=== PATIENT | female | born 1995 ===

== ENCOUNTER 2020-10-13 08:47 | Inpatient (IN) | payer OTHER ==
[2020-10-13] MEDS ORDERED: Nalbuphine 10 MG/1 ML Vial IVPUSH PRN ×2 (12:20→12:34)
[2020-10-13] MEDS ORDERED: Carboprost Tromethamine 250 MCG/1 ML Amp IM PRN ×2 (12:20→12:34)
[2020-10-13] MEDS ORDERED: Sodium Chloride 0.9% 10 ML Syringe FLUSH PRN ×2 (12:20→12:34)
[2020-10-13] MEDS ORDERED: Water For Irrigation,Sterile 1,000 ML Container IRR PRN ×2 (12:20→12:34)
[2020-10-13] MEDS ORDERED: Tranexamic Acid 1,000 MG in Sodium Chloride 0.9% 100 ML IV PRN ×2 (12:20→12:34)
[2020-10-13] MEDS ORDERED: Methylergonovine 0.2 MG/1 ML Amp IM PRN ×2 (12:20→12:34)
[2020-10-13] MEDS ORDERED: Misoprostol 200 MCG Tab PO PRN ×2 (12:20→12:34)
[2020-10-13] MEDS ORDERED: Sodium Chloride 0.9% 10 ML SDV IV PRN ×2 (12:20→12:34)
[2020-10-13] MEDS ORDERED: Sodium Chloride 0.9% 2.5 ML Syringe FLUSH PRN ×2 (12:20→12:34)
[2020-10-13] MEDS ORDERED: Lidocaine 1% 50 ML MDV INJECT PRN ×2 (12:20→12:34)
--- NOTE | 2020-10-13 12:20 | PCM.LDHP ---
L&D History of Present Illness - General Date of Service: 10/13/20 Admit Problem/Dx: Patient Status Order with Admit Dx/Problem 10/13/20 09:00 Patient Status [ADT] Routine Admission Diagnosis/Problem Admission Diagnosis/Problem Source of Information: Patient History Limitations: Reports: No Limitations - History of Present Illness Introduction:: 25 year old G1 at 39w1d (MARI 10/19/2020 by 1st trimester US) presented to labor and delivery with contractions every 5-6 minutes which started around 0430 this morning. During evaluation on labor and delivery, elevated diastolic blood pressure levels were noted. Denies leaking fluid or vaginal bleeding. Reports good movement. Denies history of elevated blood pressure in or other complications. Denies headache, visual changes or RUQ pain. - Related Data Allergies/Adverse Reactions: Allergies Allergy/AdvReac Type Severity Reaction Status Date / Time No Known Allergies Allergy Verified 10/13/20 09:46 Home Medications: Home Meds Vit #76/Iron,Carb/Fa [Pnv 29-1 Tablet] 1 each PO DAILY 10/13/20 [History] Sertraline [Zoloft] 50 mg PO DAILY 10/13/20 [History] H&P Review of Systems - Review of Systems: Review Of Systems: See Below General: Reports: No Symptoms Pulmonary: Reports: No Symptoms Cardiovascular: Reports: No Symptoms Gastrointestinal: Reports: Abdominal Pain, Nausea Genitourinary: Reports: Pain (contractions) Musculoskeletal: Reports: No Symptoms Skin: Reports: No Symptoms Psychiatric: Reports: No Symptoms Neurological: Reports: No Symptoms L&D Exam - Exam Exam: See Below - Vital Signs Weight: 190 lb - OB Specific Contraction Frequency (min): 3-5 minutes Contraction Intensity: Moderate Movement: Active Heart Tones: Present Heart Tones per Min: 130 Heart Rate (FHR) Variability: Moderate (6-25 bmp) Presentation: Vertex Estimated Weight: 9lbs per US on 09/19/2020 - Davis Score Davis Score Cervix Position: Posterior Davis Score Consistency: Soft Davis Score Effacement: 51-70% Davis Score Dilation: 1-2 cm Davis Score Infant's Station: -3 Davis Score Total: 5 - Exam General: Alert Lungs: Normal Respiratory Effort Cardiovascular: Regular Rate GI/Abdominal Exam: Soft, Non-Tender Genitourinary: Normal external exam Back Exam: Normal Inspection, Full Range of Motion Extremities: Normal Inspection, Non-Tender, No Pedal Edema Skin: Warm, Dry, Intact Psychiatric: Normal Mood - Patient Data Lab Results Last 24 hrs: Laboratory Results - last 24 hr 10/13/20 Range/Units 10:20 Urine Color YELLOW Urine Appearance CLEAR Urine pH 7.5 (5.0-8.0) Ur Specific [place] 1.015 (1.001-1.035) Urine Protein NEGATIVE (NEGATIVE) mg/dL Urine Glucose (UA) NEGATIVE (NEGATIVE) mg/dL Urine Ketones TRACE H (NEGATIVE) mg/dL Urine Occult Blood NEGATIVE (NEGATIVE) Urine Nitrite NEGATIVE (NEGATIVE) Urine Bilirubin NEGATIVE (NEGATIVE) Urine Urobilinogen 0.2 (<2.0) EU/dL Ur Leukocyte Esterase NEGATIVE (NEGATIVE) Problem List Initiated/Reviewed/Updated: Yes Orders Last 24hrs: Active Orders 24 hr Category Date Time Status Patient Status [ADT] Routine ADT 10/13/20 09:00 Active Non Stress Test [RC] PER UNIT ROUTINE Care 10/13/20 09:00 Active Up ad Sabine [RC] ASDIRECTED Care 10/13/20 09:50 Active Vaginal Exam [RC] Click to Edit Care 10/13/20 09:50 Active Vital Signs [RC] PER UNIT ROUTINE Care 10/13/20 09:50 Active Regular Diet [DIET] Diet 10/13/20 Breakfast Active CBC W/O DIFF,HEMOGRAM [HEME] Routine Lab 10/13/20 11:30 Ordered CMP [COMPREHENSIVE METABOLIC PN,CMP] [CHEM] Routine Lab 10/13/20 11:30 Ordered PROTEIN/CREATININE RATIO,URINE [URCHEM] Routine Lab 10/13/20 11:30 Ordered URIC ACID [CHEM] Routine Lab 10/13/20 11:30 Ordered Resuscitation Status Routine Resus Stat 10/13/20 09:49 Ordered Assessment/Plan Comment:: 25 year old G1 female at 39w1d (MARI 10/19/2020 by first trimester US) with spontaneous labor and elevated blood pressure * Admit to labor and delivery * O positive, rubella immune, GBS negative * Preeclampsia labs ordered, will continue to monitor vital signs and BP closely * Reviewed options for pain medication in labor including IV vs epidural, patient desires IV Stadol at this time. * IV Zofran ordered for nausea * COVID-19 test pending
[2020-10-13] MEDS ORDERED: Oxytocin/0.9 % Sodium Chloride 30 UNIT/500 ML BAG IV SCH ×2 (12:30→20:15)
[2020-10-13] MEDS ORDERED: Butorphanol 1 MG/ML SDV IVPUSH PRN (12:34)
[2020-10-13] MEDS ORDERED: Lactated Ringers 1,000 ML IV SCH (12:45)
[2020-10-13] MEDS: Lactated Ringers 1,000 ML IV SCH ×3 (13:15→17:35)
[2020-10-13] MEDS: Ondansetron 4 MG/2 ML SDV IVPUSH PRN ×2 (13:30→22:26)
[2020-10-13] MEDS: Butorphanol 1 MG/ML SDV IVPUSH PRN ×2 (13:47→16:44)
[2020-10-13 14:06] LABS: BLOOD UREA NITROGEN,BUN 6 mg/dL (7.0-18.0); CARBON DIOXIDE,CO2 20.5 mmol/L (21.0-32.0); CHLORIDE,CL 104 mmol/L (98-107); GLUCOSE RANDOM 77 mg/dL (74-106); POTASSIUM,K 3.8 mmol/L (3.5-5.1); SODIUM,NA 138 mmol/L (136-145)
[2020-10-13] MEDS ORDERED: fentaNYL 100 MCG/2 ML SDV ONE ×2 (17:38→22:24)
[2020-10-13] MEDS ORDERED: Ropivacaine HCl/PF 100 ML ONE (17:39)
--- NOTE | 2020-10-13 18:01 | PCM.PREANE ---
Preanesthetic Assessment - Anesthesia/Transfusion/Family Hx Anesthesia History: Prior Anesthesia Without Reaction Family History of Anesthesia Reaction: No Transfusion History: No Prior Transfusion(s) - Physical Assessment NPO Status Date: 10/13/20 NPO Status Time: 08:00 Height: 1.68 m Weight: 86.636 kg ASA Class: 2 - Lab Values: Laboratory Last Values WBC 9.69 K/uL (4.0-11.0) 10/13/20 13:15 RBC 4.10 M/uL (4.30-5.90) L 10/13/20 13:15 Hgb 12.1 g/dL (12.0-16.0) 10/13/20 13:15 Hct 36.5 % (36.0-46.0) 10/13/20 13:15 MCV 89.0 fL (80.0-98.0) 10/13/20 13:15 MCH 29.5 pg (27.0-32.0) 10/13/20 13:15 MCHC 33.2 g/dL (31.0-37.0) 10/13/20 13:15 RDW Std Deviation 42.2 fl (28.0-62.0) 10/13/20 13:15 RDW Coeff of Garcia 13 % (11.0-15.0) 10/13/20 13:15 Plt Count 222 K/uL (150-400) 10/13/20 13:15 MPV 10.60 fL (7.40-12.00) 10/13/20 13:15 Nucleated RBC % 0.0 /100WBC 10/13/20 13:15 Nucleated RBCs # 0 K/uL 10/13/20 13:15 Sodium 138 mmol/L (136-145) 10/13/20 13:15 Potassium 3.8 mmol/L (3.5-5.1) 10/13/20 13:15 Chloride 104 mmol/L (98-107) 10/13/20 13:15 Carbon Dioxide 20.5 mmol/L (21.0-32.0) L 10/13/20 13:15 BUN 6 mg/dL (7.0-18.0) L 10/13/20 13:15 Creatinine 0.5 mg/dL (0.6-1.0) L 10/13/20 13:15 Est Cr Clr Drug Dosing 161.02 mL/min 10/13/20 13:15 Estimated GFR (MDRD) > 60.0 ml/min 10/13/20 13:15 Glucose 77 mg/dL (74-106) 10/13/20 13:15 Uric Acid 3.6 mg/dL (2.6-7.2) 10/13/20 13:15 Calcium 8.2 mg/dL (8.5-10.1) L 10/13/20 13:15 Total Bilirubin 0.5 mg/dL (0.2-1.0) 10/13/20 13:15 AST 15 IU/L (15-37) 10/13/20 13:15 ALT 11 IU/L (14-63) L 10/13/20 13:15 Alkaline Phosphatase 203 U/L (46-116) H 10/13/20 13:15 Total Protein 6.6 g/dL (6.4-8.2) 10/13/20 13:15 Albumin 3.0 g/dL (3.4-5.0) L 10/13/20 13:15 Globulin 3.6 g/dL (2.6-4.0) 10/13/20 13:15 Albumin/Globulin Ratio 0.8 (0.9-1.6) L 10/13/20 13:15 Urine Color YELLOW 10/13/20 10:20 Urine Appearance CLEAR 10/13/20 10:20 Urine pH 7.5 (5.0-8.0) 10/13/20 10:20 Ur Specific [place] 1.015 (1.001-1.035) 10/13/20 10:20 Urine Protein NEGATIVE mg/dL (NEGATIVE) 10/13/20 10:20 Urine Glucose (UA) NEGATIVE mg/dL (NEGATIVE) 10/13/20 10:20 Urine Ketones TRACE mg/dL (NEGATIVE) H 10/13/20 10:20 Urine Occult Blood NEGATIVE (NEGATIVE) 10/13/20 10:20 Urine Nitrite NEGATIVE (NEGATIVE) 10/13/20 10:20 Urine Bilirubin NEGATIVE (NEGATIVE) 10/13/20 10:20 Urine Urobilinogen 0.2 EU/dL (<2.0) 10/13/20 10:20 Ur Leukocyte Esterase NEGATIVE (NEGATIVE) 10/13/20 10:20 Ur Random Creatinine 88.8 mg/dL 10/13/20 10:20 U Random Total Protein 18.1 mg/dL (<11.9) H 10/13/20 10:20 Protein/Creatinin Ratio 0.2 10/13/20 10:20 SARS-CoV-2 RNA (MANSOOR) NEGATIVE (NEGATIVE) 10/13/20 12:15 Blood Type O POSITIVE 10/13/20 13:15 Antibody Screen NEGATIVE 10/13/20 13:15 - Allergies Allergies/Adverse Reactions: Allergies Allergy/AdvReac Type Severity Reaction Status Date / Time No Known Allergies Allergy Verified 10/13/20 09:46 - Acknowledgements Anesthesia Type Planned: Epidural Pt an Appropriate Candidate for the Planned Anesthesia: Yes Alternatives and Risks of Anesthesia Discussed w Pt/Guardian: Yes Pt/Guardian Understands and Agrees with Anesthesia Plan: Yes PreAnesthesia Questionnaire HEENT History: Reports: Other (See Below) Other HEENT History: nasal surgery for deviated septum and had sinuses "scraped out Psychiatric History: Reports: Anxiety, Depression - Past Surgical History HEENT Surgical History: Reports: Naso-Sinus Surgery Musculoskeletal Surgical History: Reports: Arthroscopic Procedure Other Musculoskeletal Surgeries/Procedures:: left shoulder - SUBSTANCE USE Tobacco Use Status *Q: Never Tobacco User Second Hand Smoke Exposure: No Recreational Drug Use History: No - HOME MEDS Home Medications: Home Meds Vit #76/Iron,Carb/Fa [Pnv 29-1 Tablet] 1 each PO DAILY 10/13/20 [History] Sertraline [Zoloft] 50 mg PO DAILY 10/13/20 [History] - CURRENT (IN HOUSE) MEDS Current Meds: Current Medications Butorphanol Tartrate (Stadol) 1 mg IVPUSH Q1H PRN PRN Reason: Pain Last Admin: 10/13/20 16:44 Dose: 1 mg Documented by: Butorphanol Tartrate (Stadol) 1 mg IVPUSH Q1H PRN PRN Reason: Pain Carboprost Tromethamine (Hemabate Ds) 250 mcg IM ASDIRECTED PRN PRN Reason: Post Hemorrhage Carboprost Tromethamine (Hemabate Ds) 250 mcg IM ASDIRECTED PRN PRN Reason: Post Hemorrhage Lactated Ringer's (Ringers, Lactated) 1,000 mls @ 150 mls/hr IV ASDIRECTED KIP Last Admin: 10/13/20 17:35 Dose: 200 mls/hr Documented by: Oxytocin/Sodium Chloride (Oxytocin 30 Unit/500 Ml-Ns) 30 unit in 500 mls @ 500 mls/hr IV TITRATE KIP Tranexamic Acid 1,000 mg/ (Sodium Chloride) 110 mls @ 660 mls/hr IV ONETIME PRN PRN Reason: Bleeding Lactated Ringer's (Ringers, Lactated) 1,000 mls @ 150 mls/hr IV ASDIRECTED KIP Tranexamic Acid 1,000 mg/ (Sodium Chloride) 110 mls @ 660 mls/hr IV ONETIME PRN PRN Reason: Bleeding Lidocaine HCl (Xylocaine 1%) 50 ml INJECT ONETIME PRN PRN Reason: Laceration repair Lidocaine HCl (Xylocaine 1%) 50 ml INJECT ONETIME PRN PRN Reason: Laceration repair Methylergonovine Maleate (Methergine) 0.2 mg IM ASDIRECTED PRN PRN Reason: Post Hemorrhage Methylergonovine Maleate (Methergine) 0.2 mg IM ASDIRECTED PRN PRN Reason: Post Hemorrhage Misoprostol (Cytotec) 200 mcg PO ONETIME PRN PRN Reason: Post Hemorrhage Misoprostol (Cytotec) 200 mcg PO ONETIME PRN PRN Reason: Post Hemorrhage Nalbuphine HCl (Nubain) 10 mg IVPUSH Q1H PRN PRN Reason: Pain (severe 7-10) Nalbuphine HCl (Nubain) 10 mg IVPUSH Q1H PRN PRN Reason: Pain (severe 7-10) Ondansetron HCl (Zofran) 4 mg IVPUSH Q4H PRN PRN Reason: Nausea/Vomiting Last Admin: 10/13/20 13:30 Dose: 4 mg Documented by: Sodium Chloride (Saline Flush) 10 ml FLUSH ASDIRECTED PRN PRN Reason: Keep Vein Open Sodium Chloride (Saline Flush) 2.5 ml FLUSH ASDIRECTED PRN PRN Reason: Keep Vein Open Sodium Chloride (Normal Saline) 10 ml IV ASDIRECTED PRN PRN Reason: IV Use Sodium Chloride (Saline Flush) 10 ml FLUSH ASDIRECTED PRN PRN Reason: Keep Vein Open Sodium Chloride (Saline Flush) 2.5 ml FLUSH ASDIRECTED PRN PRN Reason: Keep Vein Open Sodium Chloride (Normal Saline) 10 ml IV ASDIRECTED PRN PRN Reason: IV Use Sterile Water (Sterile Water For Irrigation) 1,000 ml IRR ASDIRECTED PRN PRN Reason: delivery Sterile Water (Sterile Water For Irrigation) 1,000 ml IRR ASDIRECTED PRN PRN Reason: delivery Discontinued Medications Fentanyl (Sublimaze) Confirm Administered Dose 100 mcg .ROUTE .[email or web address]-[email or web address] ONE Stop: 10/13/20 17:39 Ropivacaine (Naropin 0.2%) Confirm Administered Dose 100 mls @ as directed .ROUTE .STK-MED ONE Stop: 10/13/20 17:40
--- NOTE | 2020-10-13 18:05 | PCM.PRNOTE ---
- Free Text/Narrative Note: Anes Note Patient requests epidural for L&D. Sitting position Level L3-L4 midline approach. Sterile technique. Chloraprep scrub to lumbar area. Sterile fenestrated drape applied. Epidural space easily achieved using MAYITO technique. MAYITO at 3 cm. Cath threaded 5 cm with ease. Cath secured at skin using sterile clear adhesive dressing. 1750 Test 3 cc 1/5% lido with epi negative. 1753 Load 10 cc 0.2% ropivicaine with 1 mcg cc fentanyl added in slow divided doses. 1803 PUmp started wtih 90 cc same solution. Rate is 8 cc hr with 6 cc q 20 min prn bolus. Benji well. Time with patient [id number] Joseph Shelley CRNA
[2020-10-13] MEDS ORDERED: Acetaminophen 500 MG Tab PO PRN (22:00)
[2020-10-13] MEDS ORDERED: Lidocaine 2% with EPINEPHrine 1:200,000 20 ML SDV ONE (22:24)
--- NOTE | 2020-10-13 22:53 | PCM.PRNOTE ---
- Free Text/Narrative Note: Anes NOte Gayletent reports incomplete analgesia left inguinal area. A new epidural was placed L3-L4 midline approach under sterile technique. Chloraprep scrub to lumbar area. Sterile fenestrated drape applied. Epidural space easily achieved single attempt using MAYITO technique. MAYITO at 3 cm. Cath threaded 5 cm with ease. Cath secured at skin using sterile clear adhesive dressing. 2240 Test dose 3 cc 1.5% lido with epi negative 2243 Load 100 mcg fentanyl plus 5 cc 2% lido with epi. 2247 Pump restarted wtih same solution of 0.2% ropivicaine with 1 mcg cc fentanyl at 8 cc hr with 6 cc q 20 min prn bolus. Tole well. Time with patient [id number] Joseph Shelley CRNA
[2020-10-14] MEDS ORDERED: fentaNYL 100 MCG/2 ML SDV ONE (01:44)
[2020-10-14] MEDS ORDERED: Ropivacaine HCl/PF 100 ML ONE (01:45)
--- NOTE | 2020-10-14 02:03 | PCM.PRNOTE ---
- Free Text/Narrative Note: Anes Note Epidural infusion has completed. A new infusion of 100 cc 0.2% ropivicaine with 1 mcg cc fentanyl added was placed. Rate is 8 cc hr with 6 cc q 20 min prn bolus. Patient reports excellent analgesia. Time with patient [id number] Joseph Shelley CRNA
[2020-10-14] MEDS: Ondansetron 4 MG/2 ML SDV IVPUSH PRN (02:12)
[2020-10-14] MEDS ORDERED: Ibuprofen 400 MG Tab PO PRN (03:55)
[2020-10-14] MEDS ORDERED: Bisacodyl 10 MG Supp RECTAL PRN (03:55)
[2020-10-14] MEDS ORDERED: Oxytocin 10 Units/1 ML SDV IM PRN (03:55)
[2020-10-14] MEDS ORDERED: Docusate Sodium 100 MG Cap PO PRN (03:55)
[2020-10-14] MEDS ORDERED: Witch Hazel Medicated Pads 40/Jar TOP PRN (03:55)
[2020-10-14] MEDS ORDERED: Lanolin 100% Cream 7 GM Tube TOP PRN (03:55)
[2020-10-14] MEDS ORDERED: oxyCODONE 5 MG Tab PO PRN (03:55)
[2020-10-14] MEDS ORDERED: Acetaminophen 500 MG Tab PO PRN ×2 (03:55)
[2020-10-14] MEDS ORDERED: Benzocaine/Menthol 20%-0.5% Spray 78 GM Cannister TOP PRN (03:55)
--- NOTE | 2020-10-14 03:58 | PCM.DEL ---
L & D Note - General Info Date of Service: 10/14/20 Mother's Due Date: 10/19/20 (by 1st trimester US) - Delivery Note Labor: Augmented by Oxytocin Delivery Outcome: Livebirth Delivery Method: Spontaneous Vaginal Delivery-Single Presentation: Vertex Nuchal Cord: None Anesthesia Type: Epidural Amniotic Fluid Description: Clear Episiotomy Type: None Laceration: 2nd Degree Suture type: Vicryl Suture size: 3-0 Placenta: Intact, Spontaneous Cord: 3 Vessels Estimated Blood Loss: 300 Resuscitation Needed: No Sebastian: Bulb Syringe, Stimulated, Warmed, B[place] Used Score 1 min: 8 Score 5 min: 9 Delivery Comments (Free Text/Narrative):: Dictation #[id number] - General Info Date of Service: 10/14/20 Admission Dx/Problem (Free Text): Patient Status Order with Admit Dx/Problem 10/13/20 09:00 Patient Status [ADT] Routine Admission Diagnosis/Problem Admission Diagnosis/Problem - Patient Data Weight - Most Recent: 191 lb Lab Results Last 24 Hours: Laboratory Results - last 24 hr 10/13/20 10/13/20 10/13/20 Range/Units 10:20 10:20 12:15 WBC (4.0-11.0) K/uL RBC (4.30-5.90) M/uL Hgb (12.0-16.0) g/dL Hct (36.0-46.0) % MCV (80.0-98.0) fL MCH (27.0-32.0) pg MCHC (31.0-37.0) g/dL RDW Std Deviation (28.0-62.0) fl RDW Coeff of Garcia (11.0-15.0) % Plt Count (150-400) K/uL MPV (7.40-12.00) fL Nucleated RBC % /100WBC Nucleated RBCs # K/uL Sodium (136-145) mmol/L Potassium (3.5-5.1) mmol/L Chloride (98-107) mmol/L Carbon Dioxide (21.0-32.0) mmol/L BUN (7.0-18.0) mg/dL Creatinine (0.6-1.0) mg/dL Est Cr Clr Drug Dosing mL/min Estimated GFR (MDRD) ml/min Glucose (74-106) mg/dL Uric Acid (2.6-7.2) mg/dL Calcium (8.5-10.1) mg/dL Total Bilirubin (0.2-1.0) mg/dL AST (15-37) IU/L ALT (14-63) IU/L Alkaline Phosphatase (46-116) U/L Total Protein (6.4-8.2) g/dL Albumin (3.4-5.0) g/dL Globulin (2.6-4.0) g/dL Albumin/Globulin Ratio (0.9-1.6) Urine Color YELLOW Urine Appearance CLEAR Urine pH 7.5 (5.0-8.0) Ur Specific [place] 1.015 (1.001-1.035) Urine Protein NEGATIVE (NEGATIVE) mg/dL Urine Glucose (UA) NEGATIVE (NEGATIVE) mg/dL Urine Ketones TRACE H (NEGATIVE) mg/dL Urine Occult Blood NEGATIVE (NEGATIVE) Urine Nitrite NEGATIVE (NEGATIVE) Urine Bilirubin NEGATIVE (NEGATIVE) Urine Urobilinogen 0.2 (<2.0) EU/dL Ur Leukocyte Esterase NEGATIVE (NEGATIVE) Ur Random Creatinine 88.8 mg/dL U Random Total Protein 18.1 H (<11.9) mg/dL Protein/Creatinin Ratio 0.2 SARS-CoV-2 RNA (MANSOOR) NEGATIVE (NEGATIVE) Blood Type Antibody Screen 10/13/20 10/13/20 10/13/20 Range/Units 13:15 13:15 13:15 WBC 9.69 (4.0-11.0) K/uL RBC 4.10 L (4.30-5.90) M/uL Hgb 12.1 (12.0-16.0) g/dL Hct 36.5 (36.0-46.0) % MCV 89.0 (80.0-98.0) fL MCH 29.5 (27.0-32.0) pg MCHC 33.2 (31.0-37.0) g/dL RDW Std Deviation 42.2 (28.0-62.0) fl RDW Coeff of Garcia 13 (11.0-15.0) % Plt Count 222 (150-400) K/uL MPV 10.60 (7.40-12.00) fL Nucleated RBC % 0.0 /100WBC Nucleated RBCs # 0 K/uL Sodium 138 (136-145) mmol/L Potassium 3.8 (3.5-5.1) mmol/L Chloride 104 (98-107) mmol/L Carbon Dioxide 20.5 L (21.0-32.0) mmol/L BUN 6 L (7.0-18.0) mg/dL Creatinine 0.5 L (0.6-1.0) mg/dL Est Cr Clr Drug Dosing 161.02 mL/min Estimated GFR (MDRD) > 60.0 ml/min Glucose 77 (74-106) mg/dL Uric Acid 3.6 (2.6-7.2) mg/dL Calcium 8.2 L (8.5-10.1) mg/dL Total Bilirubin 0.5 (0.2-1.0) mg/dL AST 15 (15-37) IU/L ALT 11 L (14-63) IU/L Alkaline Phosphatase 203 H (46-116) U/L Total Protein 6.6 (6.4-8.2) g/dL Albumin 3.0 L (3.4-5.0) g/dL Globulin 3.6 (2.6-4.0) g/dL Albumin/Globulin Ratio 0.8 L (0.9-1.6) Urine Color Urine Appearance Urine pH (5.0-8.0) Ur Specific [place] (1.001-1.035) Urine Protein (NEGATIVE) mg/dL Urine Glucose (UA) (NEGATIVE) mg/dL Urine Ketones (NEGATIVE) mg/dL Urine Occult Blood (NEGATIVE) Urine Nitrite (NEGATIVE) Urine Bilirubin (NEGATIVE) Urine Urobilinogen (<2.0) EU/dL Ur Leukocyte Esterase (NEGATIVE) Ur Random Creatinine mg/dL U Random Total Protein (<11.9) mg/dL Protein/Creatinin Ratio SARS-CoV-2 RNA (MANSOOR) (NEGATIVE) Blood Type O POSITIVE Antibody Screen NEGATIVE Med Orders - Current: Current Medications Acetaminophen (Tylenol Extra Strength) 1,000 mg PO Q4H PRN PRN Reason: Headache Last Admin: 10/13/20 22:29 Dose: 1,000 mg Documented by: Butorphanol Tartrate (Stadol) 1 mg IVPUSH Q1H PRN PRN Reason: Pain Last Admin: 10/13/20 16:44 Dose: 1 mg Documented by: Butorphanol Tartrate (Stadol) 1 mg IVPUSH Q1H PRN PRN Reason: Pain Carboprost Tromethamine (Hemabate Ds) 250 mcg IM ASDIRECTED PRN PRN Reason: Post Hemorrhage Carboprost Tromethamine (Hemabate Ds) 250 mcg IM ASDIRECTED PRN PRN Reason: Post Hemorrhage Lactated Ringer's (Ringers, Lactated) 1,000 mls @ 150 mls/hr IV ASDIRECTED [facility] Last Admin: 10/13/20 17:35 Dose: 200 mls/hr Documented by: Oxytocin/Sodium Chloride (Oxytocin 30 Unit/500 Ml-Ns) 30 unit in 500 mls @ 500 mls/hr IV TITRATE [facility] Tranexamic Acid 1,000 mg/ (Sodium Chloride) 110 mls @ 660 mls/hr IV ONETIME PRN PRN Reason: Bleeding Lactated Ringer's (Ringers, Lactated) 1,000 mls @ 150 mls/hr IV ASDIRECTED [facility] Last Admin: 10/13/20 21:32 Dose: 150 mls/hr Documented by: Tranexamic Acid 1,000 mg/ (Sodium Chloride) 110 mls @ 660 mls/hr IV ONETIME PRN PRN Reason: Bleeding Oxytocin/Sodium Chloride (Oxytocin 30 Unit/500 Ml-Ns) 30 unit in 500 mls @ 2 mls/hr IV TITRATE [facility]; Protocol Last Admin: 10/13/20 21:30 Dose: 2 munits/min, 2 mls/hr Documented by: Lidocaine HCl (Xylocaine 1%) 50 ml INJECT ONETIME PRN PRN Reason: Laceration repair Lidocaine HCl (Xylocaine 1%) 50 ml INJECT ONETIME PRN PRN Reason: Laceration repair Methylergonovine Maleate (Methergine) 0.2 mg IM ASDIRECTED PRN PRN Reason: Post Hemorrhage Methylergonovine Maleate (Methergine) 0.2 mg IM ASDIRECTED PRN PRN Reason: Post Hemorrhage Misoprostol (Cytotec) 200 mcg PO ONETIME PRN PRN Reason: Post Hemorrhage Misoprostol (Cytotec) 200 mcg PO ONETIME PRN PRN Reason: Post Hemorrhage Nalbuphine HCl (Nubain) 10 mg IVPUSH Q1H PRN PRN Reason: Pain (severe 7-10) Nalbuphine HCl (Nubain) 10 mg IVPUSH Q1H PRN PRN Reason: Pain (severe 7-10) Ondansetron HCl (Zofran) 4 mg IVPUSH Q4H PRN PRN Reason: Nausea/Vomiting Last Admin: 10/14/20 02:12 Dose: 4 mg Documented by: Sodium Chloride (Saline Flush) 10 ml FLUSH ASDIRECTED PRN PRN Reason: Keep Vein Open Sodium Chloride (Saline Flush) 2.5 ml FLUSH ASDIRECTED PRN PRN Reason: Keep Vein Open Sodium Chloride (Normal Saline) 10 ml IV ASDIRECTED PRN PRN Reason: IV Use Sodium Chloride (Saline Flush) 10 ml FLUSH ASDIRECTED PRN PRN Reason: Keep Vein Open Sodium Chloride (Saline Flush) 2.5 ml FLUSH ASDIRECTED PRN PRN Reason: Keep Vein Open Sodium Chloride (Normal Saline) 10 ml IV ASDIRECTED PRN PRN Reason: IV Use Sterile Water (Sterile Water For Irrigation) 1,000 ml IRR ASDIRECTED PRN PRN Reason: delivery Sterile Water (Sterile Water For Irrigation) 1,000 ml IRR ASDIRECTED PRN PRN Reason: delivery Discontinued Medications Fentanyl (Sublimaze) Confirm Administered Dose 100 mcg .ROUTE .STXiam-MED ONE Stop: 10/13/20 17:39 Last Admin: 10/13/20 20:10 Dose: Not Given Documented by: Fentanyl (Sublimaze) Confirm Administered Dose 100 mcg .ROUTE .STK-MED ONE Stop: 10/13/20 22:25 Fentanyl (Sublimaze) Confirm Administered Dose 100 mcg .ROUTE .STXiam-MED ONE Stop: 10/14/20 01:45 Ropivacaine (Naropin 0.2%) Confirm Administered Dose 100 mls @ as directed .ROUTE .STXiam-MED ONE Stop: 10/13/20 17:40 Last Admin: 10/13/20 20:10 Dose: Not Given Documented by: Ropivacaine (Naropin 0.2%) Confirm Administered Dose 100 mls @ as directed .ROUTE .STK-MED ONE Stop: 10/14/20 01:46 Lidocaine/Epinephrine (Xylocaine-Mpf 2%-Epi 1:200,000) Confirm Administered Dose 20 ml .ROUTE .STXiam-MED ONE Stop: 10/13/20 22:25 - Problem List Review Problem List Initiated/Reviewed/Updated: Yes - My Orders Last 24 Hours: My Active Orders 10/13/20 Lunch Clear Liquid Diet [DIET] 10/13/20 12:20 Heart Tones [RC] CONTINUOUS May Shower [RC] ASDIRECTED Notify Provider [RC] PRN Up ad Sabine [RC] ASDIRECTED Vaginal Exam [RC] PRN Vital Signs [RC] PER UNIT ROUTINE Butorphanol [Stadol] 1 mg IVPUSH Q1H PRN Carboprost Tromethamine [Hemabate DS] 250 mcg IM ASDIRECTED PRN Lidocaine 1% [Xylocaine 1%] 50 ml INJECT ONETIME PRN Methylergonovine [Methergine] 0.2 mg IM ASDIRECTED PRN Nalbuphine [Nubain] 10 mg IVPUSH Q1H PRN Ondansetron [Zofran] 4 mg IVPUSH Q4H PRN Sodium Chloride 0.9% [Normal Saline] 10 ml IV ASDIRECTED PRN Sodium Chloride 0.9% [Saline Flush] 10 ml FLUSH ASDIRECTED PRN Sodium Chloride 0.9% [Saline Flush] 2.5 ml FLUSH ASDIRECTED PRN Tranexamic Acid [Cyklokapron] 1,000 mg Sodium Chloride 0.9% [Normal Saline] 100 ml IV ONETIME Water For Irrigation,Sterile [Sterile Water for Irrigation] 1,000 ml IRR ASDIRECTED PRN miSOPROStoL [Cytotec] 200 mcg PO ONETIME PRN Scalp Electrode [WOMSER] Per Unit Routine Peripheral IV Insertion Adult [OM.PC] Routine 10/13/20 12:30 Lactated Ringers [Ringers, Lactated] 1,000 ml IV ASDIRECTED Oxytocin/0.9 % Sodium Chloride [Oxytocin 30 Unit/500 ML-NS] 30 unit in 500 ml IV TITRATE 10/13/20 12:34 Patient Status [ADT] Routine Heart Tones [RC] CONTINUOUS Non Stress Test [RC] PER UNIT ROUTINE May Shower [RC] ASDIRECTED Notify Provider [RC] PRN Up ad Sabine [RC] ASDIRECTED Vaginal Exam [RC] PRN Vital Signs [RC] PER UNIT ROUTINE Butorphanol [Stadol] 1 mg IVPUSH Q1H PRN Carboprost Tromethamine [Hemabate DS] 250 mcg IM ASDIRECTED PRN Lidocaine 1% [Xylocaine 1%] 50 ml INJECT ONETIME PRN Methylergonovine [Methergine] 0.2 mg IM ASDIRECTED PRN Nalbuphine [Nubain] 10 mg IVPUSH Q1H PRN Sodium Chloride 0.9% [Normal Saline] 10 ml IV ASDIRECTED PRN Sodium Chloride 0.9% [Saline Flush] 10 ml FLUSH ASDIRECTED PRN Sodium Chloride 0.9% [Saline Flush] 2.5 ml FLUSH ASDIRECTED PRN Tranexamic Acid [Cyklokapron] 1,000 mg Sodium Chloride 0.9% [Normal Saline] 100 ml IV ONETIME Water For Irrigation,Sterile [Sterile Water for Irrigation] 1,000 ml IRR ASDIRECTED PRN miSOPROStoL [Cytotec] 200 mcg PO ONETIME PRN Scalp Electrode [WOMSER] Per Unit Routine Peripheral IV Insertion Adult [OM.PC] Routine 10/13/20 12:45 Lactated Ringers [Ringers, Lactated] 1,000 ml IV ASDIRECTED 10/13/20 13:15 RPR (SYPHILIS SERO) W/ RFLX [REF] Routine 10/13/20 Dinner Clear Liquid Diet [DIET] 10/13/20 20:15 Oxytocin/0.9 % Sodium Chloride [Oxytocin 30 Unit/500 ML-NS] 30 unit in 500 ml IV TITRATE 10/13/20 22:00 Acetaminophen [Tylenol Extra Strength] 1,000 mg PO Q4H PRN 10/14/20 03:55 Patient Status [ADT] Routine May Shower [RC] ASDIRECTED Up ad Sabine [RC] ASDIRECTED Vital Signs [RC] PER UNIT ROUTINE Acetaminophen [Tylenol Extra Strength] 1,000 mg PO Q4H PRN Acetaminophen [Tylenol Extra Strength] 500 mg PO Q4H PRN Benzocaine/Menthol [Dermoplast Pain Relief 20%-0.5% [place]] 78 gm TOP ASDIRECTED PRN Docusate Sodium [Colace] 100 mg PO BID PRN Ibuprofen [Motrin] 400 mg PO Q4H PRN Ibuprofen [Motrin] 800 mg PO Q6H PRN Lanolin [Lansinoh HPA] See Dose Instructions TOP ASDIRECTED PRN Oxytocin [Pitocin] 10 unit IM ASDIRECTED PRN bisacodyL [Dulcolax] 10 mg RECTAL ONETIME PRN oxyCODONE 5 mg PO Q2H PRN witch Dario [Tucks] 1 pad TOP ASDIRECTED PRN Assess Lochia [WOMSER] Per Unit Routine Assess Uterine Involution [WOMSER] Per Unit Routine Peripheral IV Discontinue [OM.PC] Routine 10/15/20 05:11 HEMOGLOBIN/HEMATOCRIT,HH [HEME] Timed - Assessment Assessment:: 25 year old G1 now P1 female PPD 1 status post spontaneous vaginal delivery - Plan Plan:: Routine cares * O positive, rubella immune, GBS negative * COVID-19 negative * Encourage ambulation and fluid intake today * PO pain medications ordered including Ibuprofen, Tylenol and Oxycodone * Plans to breast feed, nursing assistance as indicated * EBL 300cc, will monitor blood loss per protocol Elevated blood pressures * Patient had mild-range diastolic blood pressures (90-100's) upon arrival to L&D which resolved with pain medication. However, she had a few mild range blood pressures during the second stage of labor. * Preeclampsia labs within normal limits. * Asymptomatic. * Will continue to monitor vital signs and BP closely. History of depression * Mood stable since admission * Will continue Zoloft 50mg daily Dispo: stable. Anticipate routine course.
[2020-10-14] MEDS: Ibuprofen 800 MG Tab PO PRN ×2 (05:47→13:34)
[2020-10-15] MEDS: Ibuprofen 800 MG Tab PO PRN (01:16)
--- NOTE | 2020-10-15 06:53 | PCM48HPAN ---
Post Anesthesia Note - EVALUATION WITHIN 48HRS OF ANESTHETIC Vital Signs in Normal Range: Yes Patient Participated in Evaluation: Yes Respiratory Function Stable: Yes Airway Patent: Yes Cardiovascular Function Stable: Yes Hydration Status Stable: Yes Pain Control Satisfactory: Yes Nausea and Vomiting Control Satisfactory: Yes Mental Status Recovered: Yes Vital Signs: Last Vital Signs Temp 36.4 C 10/15/20 04:00 Pulse 71 10/15/20 04:00 Resp 14 10/15/20 04:00 BP 111/61 10/15/20 04:00 Pulse Ox 97 10/15/20 04:00
--- NOTE | 2020-10-15 10:13 | PCM.PNPP ---
- General Info Date of Service: 10/15/20 Admission Dx/Problem (Free Text): Patient Status Order with Admit Dx/Problem 10/13/20 09:00 Patient Status [ADT] Routine Admission Diagnosis/Problem Admission Diagnosis/Problem Subjective Update: Resting comfortably in bed. Pain well controlled. Ambulating and voiding without difficulty. Lochia decreasing. Tolerating regular diet. Denies fever/chills, lightheadedness, dizziness, headache, SOA or CP. , going well. - General Info Date of Service: 10/15/20 - Patient Data Vital Signs - Most Recent: Last Vital Signs Temp 97.6 F 10/15/20 08:13 Pulse 58 L 10/15/20 08:13 Resp 16 10/15/20 08:13 BP 108/72 10/15/20 08:13 Pulse Ox 98 10/15/20 08:13 Weight - Most Recent: 191 lb Lab Results - Last 24 Hours: Laboratory Results - last 24 hr 10/15/20 Range/Units 06:05 Hgb 9.1 L (12.0-16.0) g/dL Hct 27.6 L (36.0-46.0) % Med Orders - Current: Current Medications Acetaminophen (Tylenol Extra Strength) 1,000 mg PO Q4H PRN PRN Reason: Headache Last Admin: 10/13/20 22:29 Dose: 1,000 mg Documented by: Acetaminophen (Tylenol Extra Strength) 500 mg PO Q4H PRN PRN Reason: Pain Acetaminophen (Tylenol Extra Strength) 1,000 mg PO Q4H PRN PRN Reason: Pain Benzocaine/Menthol (Dermoplast Pain Relief 20%-0.5% [place]) 78 gm TOP ASDIRECTED PRN PRN Reason: Perineal Comfort Measure Last Admin: 10/14/20 05:47 Dose: 1 can Documented by: Bisacodyl (Dulcolax) 10 mg RECTAL ONETIME PRN PRN Reason: Constipation Docusate Sodium (Colace) 100 mg PO BID PRN PRN Reason: Constipation Emollient Ointment (Lansinoh Hpa) 0 gm TOP ASDIRECTED PRN PRN Reason: Sore Nipples Last Admin: 10/14/20 05:47 Dose: 1 tube Documented by: Oxytocin/Sodium Chloride (Oxytocin 30 Unit/500 Ml-Ns) 30 unit in 500 mls @ 2 mls/hr IV TITRATE [facility]; Protocol Last Admin: 10/13/20 21:30 Dose: 2 munits/min, 2 mls/hr Documented by: Ibuprofen (Motrin) 400 mg PO Q4H PRN PRN Reason: Pain Ibuprofen (Motrin) 800 mg PO Q6H PRN PRN Reason: Pain Last Admin: 10/15/20 01:16 Dose: 800 mg Documented by: Oxycodone HCl (Oxycodone) 5 mg PO Q2H PRN PRN Reason: Pain Oxytocin (Pitocin) 10 unit IM ASDIRECTED PRN PRN Reason: Bleeding Sodium Chloride (Saline Flush) 10 ml FLUSH ASDIRECTED PRN PRN Reason: Keep Vein Open Sodium Chloride (Saline Flush) 2.5 ml FLUSH ASDIRECTED PRN PRN Reason: Keep Vein Open Sodium Chloride (Normal Saline) 10 ml IV ASDIRECTED PRN PRN Reason: IV Use Sodium Chloride (Saline Flush) 10 ml FLUSH ASDIRECTED PRN PRN Reason: Keep Vein Open Sodium Chloride (Saline Flush) 2.5 ml FLUSH ASDIRECTED PRN PRN Reason: Keep Vein Open Sodium Chloride (Normal Saline) 10 ml IV ASDIRECTED PRN PRN Reason: IV Use [place] (Tucks) 1 pad TOP ASDIRECTED PRN PRN Reason: comfort care Last Admin: 10/14/20 05:47 Dose: 1 tub Documented by: Discontinued Medications Butorphanol Tartrate (Stadol) 1 mg IVPUSH Q1H PRN PRN Reason: Pain Last Admin: 10/13/20 16:44 Dose: 1 mg Documented by: Butorphanol Tartrate (Stadol) 1 mg IVPUSH Q1H PRN PRN Reason: Pain Carboprost Tromethamine (Hemabate Ds) 250 mcg IM ASDIRECTED PRN PRN Reason: Post Hemorrhage Carboprost Tromethamine (Hemabate Ds) 250 mcg IM ASDIRECTED PRN PRN Reason: Post Hemorrhage Fentanyl (Sublimaze) Confirm Administered Dose 100 mcg .ROUTE .STK-MED ONE Stop: 10/13/20 17:39 Last Admin: 10/13/20 20:10 Dose: Not Given Documented by: Fentanyl (Sublimaze) Confirm Administered Dose 100 mcg .ROUTE .STK-MED ONE Stop: 10/13/20 22:25 Last Admin: 10/14/20 06:54 Dose: Not Given Documented by: Fentanyl (Sublimaze) Confirm Administered Dose 100 mcg .ROUTE .[facility] ONE Stop: 10/14/20 01:45 Last Admin: 10/14/20 06:55 Dose: Not Given Documented by: Lactated Ringer's (Ringers, Lactated) 1,000 mls @ 150 mls/hr IV ASDIRECTED COUNTS INCLUDE 234 BEDS AT THE [facility] Last Admin: 10/13/20 17:35 Dose: 200 mls/hr Documented by: Oxytocin/Sodium Chloride (Oxytocin 30 Unit/500 Ml-Ns) 30 unit in 500 mls @ 500 mls/hr IV TITRATE COUNTS INCLUDE 234 BEDS AT THE [facility] Tranexamic Acid 1,000 mg/ (Sodium Chloride) 110 mls @ 660 mls/hr IV ONETIME PRN PRN Reason: Bleeding Lactated Ringer's (Ringers, Lactated) 1,000 mls @ 150 mls/hr IV ASDIRECTED COUNTS INCLUDE 234 BEDS AT THE [facility] Last Admin: 10/13/20 21:32 Dose: 150 mls/hr Documented by: Tranexamic Acid 1,000 mg/ (Sodium Chloride) 110 mls @ 660 mls/hr IV ONETIME PRN PRN Reason: Bleeding Ropivacaine (Naropin 0.2%) Confirm Administered Dose 100 mls @ as directed .ROUTE .[facility] ONE Stop: 10/13/20 17:40 Last Admin: 10/13/20 20:10 Dose: Not Given Documented by: Ropivacaine (Naropin 0.2%) Confirm Administered Dose 100 mls @ as directed .ROUTE .[facility] ONE Stop: 10/14/20 01:46 Last Admin: 10/14/20 06:55 Dose: Not Given Documented by: Lidocaine HCl (Xylocaine 1%) 50 ml INJECT ONETIME PRN PRN Reason: Laceration repair Lidocaine HCl (Xylocaine 1%) 50 ml INJECT ONETIME PRN PRN Reason: Laceration repair Lidocaine/Epinephrine (Xylocaine-Mpf 2%-Epi 1:200,000) Confirm Administered Dose 20 ml .ROUTE .[facility] ONE Stop: 10/13/20 22:25 Last Admin: 10/14/20 06:54 Dose: Not Given Documented by: Methylergonovine Maleate (Methergine) 0.2 mg IM ASDIRECTED PRN PRN Reason: Post Hemorrhage Methylergonovine Maleate (Methergine) 0.2 mg IM ASDIRECTED PRN PRN Reason: Post Hemorrhage Misoprostol (Cytotec) 200 mcg PO ONETIME PRN PRN Reason: Post Hemorrhage Misoprostol (Cytotec) 200 mcg PO ONETIME PRN PRN Reason: Post Hemorrhage Nalbuphine HCl (Nubain) 10 mg IVPUSH Q1H PRN PRN Reason: Pain (severe 7-10) Nalbuphine HCl (Nubain) 10 mg IVPUSH Q1H PRN PRN Reason: Pain (severe 7-10) Ondansetron HCl (Zofran) 4 mg IVPUSH Q4H PRN PRN Reason: Nausea/Vomiting Last Admin: 10/14/20 02:12 Dose: 4 mg Documented by: Sterile Water (Sterile Water For Irrigation) 1,000 ml IRR ASDIRECTED PRN PRN Reason: delivery Sterile Water (Sterile Water For Irrigation) 1,000 ml IRR ASDIRECTED PRN PRN Reason: delivery - Interaction Infant Disposition, : [place] in Room with Family Infant Interaction: Holding Feeding: Breastfed Infant; Nursed Well Support Person: - Recovery Exam Fundal Tone: Firm Fundal Level: 1 Fingerbreadths Below Umbilicus Fundal Placement: Midline Lochia Amount: Scant Lochia Color: Rubra/Red Perineum Description: Intact, Minimal Bruising/Swelling, Other (see below) Other Perinuem Description: 2nd degree laceration Episiotomy/Laceration: Approximated Bladder Status: Voiding Urinary Elimination: Voided - Exam General: Alert Lungs: Normal Respiratory Effort Cardiovascular: Regular Rate GI/Abdominal Exam: Soft, Non-Tender Extremities: Normal Inspection, Non-Tender, No Pedal Edema Skin: Warm, Dry, Intact Neurological: No New Focal Deficit Psy/Mental Status: Normal Mood - Problem List Review Problem List Initiated/Reviewed/Updated: Yes - My Orders Last 24 Hours: My Active Orders 10/15/20 10:01 Ready for Discharge [RC] PER UNIT ROUTINE - Assessment Assessment:: 25 year old G1 now P1 female PPD 1 status post spontaneous vaginal delivery - Plan Plan:: Routine cares * O positive, rubella immune, GBS negative * COVID-19 negative * Encourage ambulation and fluid intake today * PO pain medications ordered including Ibuprofen, Tylenol and Oxycodone * Plans to breast feed, nursing assistance as indicated Elevated blood pressures * Patient had mild-range diastolic blood pressures (90-100's) upon arrival to L&D which resolved with pain medication. - BP normotensive * Preeclampsia labs within normal limits. * Asymptomatic. History of depression * Mood stable since admission * Will continue Zoloft 50mg daily Dispo: stable. Anticipate routine course with discharge today pending maternal/ status. Reviewed options for contraception , patient desires progesterone-only OCP. Reviewed discharge instructions.
--- NOTE | 2020-10-17 09:30 | OR ---
SURGEON: WESTLEY OCAMPO MD DATE OF PROCEDURE: 10/14/2020 PREOPERATIVE DIAGNOSES: 1. Term intrauterine at 39 weeks and 2 days. 2. Elevated blood pressures. 3. Spontaneous labor. 4. History of depression. POSTOPERATIVE DIAGNOSES: 1. Term intrauterine at 39 weeks and 2 days. 2. Elevated blood pressures. 3. Spontaneous labor. 4. History of depression. PROCEDURE: Spontaneous vaginal delivery, second-degree midline laceration repaired. ANESTHESIA: Epidural. ESTIMATED BLOOD LOSS: 300 mL. COMPLICATIONS: Unknown. FINDINGS: Viable male infant in cephalic presentation. score of 8 at one minute and 9 at five minutes. Weight 8 pounds 3 ounces. Spontaneous delivery, intact placenta, 3-vessel cord. DISPOSITION: to nursery, mom in LDRP. PROCEDURE DETAILS: The patient was admitted on the morning of 10/13/2020 in spontaneous labor. As she presented to Labor and Delivery at that time, noted to have mild range diastolic blood pressures, preeclampsia labs were obtained and were within normal limits. Blood pressure returned to normotensive after pain management was induced. Her COVID test was negative. Labor progressed spontaneously from 1 cm on admission to 3 to 4 cm, 80% effacement, -2 station at approximately 4:30 in the afternoon of 10/13/2020. Artificial rupture of membranes with moderate amount of clear fluid was then performed at that time. The patient then underwent an epidural and became very comfortable. After receiving epidural, the patient's contractions because much frequent and no cervical change was noted for 3 hours. Pitocin was then initiated at 2 units. The patient then progressed spontaneously in labor and at approximately midnight 00:40 achieved complete dilation and +1 station. She was allowed to labor down for approximately an hour before starting pushing efforts. At approximately 3:20 this morning, I received a phone call that the patient would be ready for delivery soon. I arrived at the patient's room at 3:30 and infant was actually delivering at that time. Upon my arrival to the room, the infant had delivered precipitously by nursing staff. After approximately 1 minute after delivery, I clamped the cord x2 and it was cut. Infant was handed off to mother and awaiting nursing staff for further evaluation. Light pressure was applied to the fundus while the placenta was delivered spontaneously intact. Vigorous fundal uterine massage was then applied while 30 units of Pitocin was delivered in 500 mL of IV fluid. Upon inspection of the cervix, vaginal sidewalls, and perineum, there was a second-degree midline laceration which was repaired using 3-0 Vicryl in the usual fashion. Hemostasis was noted. Uterus remained firm. Sponge, lap, needle count were correct. The patient remained in LDRP. We will continue to monitor blood pressures as indicated. LONI / DAPHNE /[id number]
== END 2020-10-15 13:11 | disposition home or self-care (01) | DRG 807 ==
LOC: MW.OBCHECK 08:47 → MW.OB 08:47 → MW.OBCHECK 12:34 → MW.OB 12:34 → OBSVTOIN 10-14 03:30 → MW.OB 10-14 06:21
PROVIDERS: ADMIT Obstetrics & Gynecology; ATTEND Obstetrics & Gynecology
PROC: 10E0XZZ Delivery of Products of Conception, External Approach (ICD-10-PCS; principal; 2020-10-14)
PROC: 0KQM0ZZ Repair Perineum Muscle, Open Approach (ICD-10-PCS; 2020-10-14)
PROC: 10907ZC Drainage of Amniotic Fluid, Therapeutic from Products of Conception, Via Natural or Artificial Opening (ICD-10-PCS; 2020-10-14)
PROC: 3E0R3BZ Introduction of Anesthetic Agent into Spinal Canal, Percutaneous Approach (ICD-10-PCS; 2020-10-14)
PROC: 00HU33Z Insertion of Infusion Device into Spinal Canal, Percutaneous Approach (ICD-10-PCS; 2020-10-14)
DX: O16.4 Unspecified maternal hypertension, complicating childbirth (principal); Z37.0 Single live birth; O99.344 Other mental disorders complicating childbirth; O70.1 Second degree perineal laceration during delivery; Z20.822 Contact with and (suspected) exposure to COVID-19; F32.9 Major depressive disorder, single episode, unspecified
CPT/HCPCS: 36415; 51702; 59025; 59409; 80053; 81003; 82570; 84156; 84550; 85014; 85018; 85027; 86592; 86850; 86900; 86901; A9270-GY; J0595; J2405; J2590; J2795; J3010; J7120; U0002